=== PATIENT | female | born 1950 | race Caucasian/White ===

== ENCOUNTER → 2016-06-25 | Outpatient (CLI) | payer OTHER | LOC: FIMAGING 14:03 | DX: Z12.89 Encounter for screening for malignant neoplasm of other sites (principal); R91.1 Solitary pulmonary nodule; J43.2 Centrilobular emphysema ==

== ENCOUNTER 2017-03-17 16:05 | Emergency (ER) | payer OTHER ==
--- NOTE | 2017-03-17 16:52 | EDPHY ---
HPI/HX/ROS/PE/MDM Narrative: CHIEF COMPLAINT: Coughing associated with coughing up blood HISTORY OF PRESENT ILLNESS: The patient is a 67 y/o female with a history of COPD (oxygen dependent, 2.5L) and chronic bronchitis complaining of a worsening cough, onset 5 days ago. Her shortness of breath is also worse than baseline, but she has not turned her oxygen up. Since her symptoms began, she has developed right-sided chest tightness, achyness and a sore throat. Today was the first day she noticed blood in the sputum she was coughing up. She has been using her Albuterol inhaler more frequently. No fever, vomiting, headache, or body aches. Last took Prednisone 3 years ago when she was diagnosed with pneumonia. Her did have a cold last week. Denies history of diabetes, hypercholesteremia, hypertension, familial history of cardiac disease. No palpitations, urinary complaints, headache, lightheadedness. REVIEW OF SYSTEMS: Aside from elements discussed in the HPI, a comprehensive 10-point review of systems was reviewed and is negative. PAST MEDICAL HISTORY: COPD, chronic bronchitis component. SOCIAL HISTORY: at bedside, lives in [place], retired VITAL SIGNS: BP: 178/83, others reviewed by me GENERAL: Overweight, slightly ill appearing, on O2 with sat of 94%, seems uncomfortable with increased work of breathing. HEENT: Atraumatic. Eyes: No icterus, no injection. Mouth: moist mucous membranes. No erythema or lesions. Neck: supple with no adenopathy. LUNGS: Very diminished breath sounds. Wet sounding cough. CARDIAC: Regular rate and rhythm, no rubs, murmurs or gallops. ABDOMEN: Soft, nontender, nondistended, bowel sounds normal. BACK: No CVA tenderness. EXTREMITIES: No trauma. No edema. Range of motion is normal throughout. NEURO: Alert and oriented, grossly nonfocal. SKIN: Warm and dry, no rash. PSYCHIATRIC: Normal mentation, no agitation. Portions of this note were transcribed by a biomedical engineering aide. I personally performed a history, physical exam, medical decision making, and confirmed accuracy of information the transcribed note. ED Course: The patient is a 67 y/o female with a history of COPD (oxygen dependent, 2.5L), presenting with a worsening cough and dyspnea. On exam she has very dimished breath sounds bilaterally and a wet sounding cough. Labs, EKG, and chest x-ray ordered. DuoNeb, Albuterol, and 125mg IV Solu-Medrol administered. 1735: Patient's chest x-ray reveals COPD with perihilar bronchitis and right basilar diskoid subsegmental atelectasis and/or parenchymal fibrosis. 1735: 12-LEAD EKG: Please see the full report in [facility]. My interpretation: Normal sinus rhythm with a rate of 73 1832: Influenza PCR is negative. Incidentally, patient is positive for RSV, other lab results are unremarkable. 1858: Reassessed patient and discussed laboratory and imaging findings. She is feeling better after Albuterol and a DuoNeb, she will have an additional nebulizer treatment before discharge. I have prescribed her Levaquin, Tessalon Pearles, and Prednisone for her symptoms, her first doses of Levaquin and Prednisone will be given in the ED. Strict return precautions provided; patient and her are comfortable with this plan. MDM: Differential diagnosis for the patient's cough with slight hemoptysis was considered including but not limited to viral versus bacterial bronchitis, asthma, COPD, pulmonary emboli, upper respiratory infection, lower respiratory infection, influenza and bronchospasm. - Data Points Imaging: I viewed and interpreted images myself Laboratory Results: Laboratory Results 03/17/17 14:21 03/17/17 14:21 Medications Given: Discontinued Medications Albuterol (Proventil Neb) 3 ml IH EDNOW ONE Stop: 03/17/17 17:36 Last Admin: 03/17/17 17:52 Dose: 3 ml Albuterol (Proventil Neb) 3 ml IH EDNOW ONE Stop: 03/17/17 19:15 Last Admin: 03/17/17 19:36 Dose: 3 ml Albuterol/Ipratropium (Duoneb) 3 ml IH EDNOW ONE Stop: 03/17/17 17:36 Last Admin: 03/17/17 17:52 Dose: 3 ml Levofloxacin (Levaquin) 750 mg PO EDNOW ONE PRN Reason: Protocol Stop: 03/17/17 19:06 Last Admin: 03/17/17 19:35 Dose: 750 mg Methylprednisolone Sodium Succinate (Solu-Medrol) 125 mg IVP EDNOW ONE Stop: 03/17/17 17:36 Last Admin: 03/17/17 17:52 Dose: 125 mg General Time Seen by Provider: 03/17/17 16:48 Initial Vital Signs: Initial Vital Signs Temperature (C) 36.5 C 03/17/17 16:26 Heart Rate 84 03/17/17 16:26 Respiratory Rate 20 03/17/17 16:26 Blood Pressure 178/103 H 03/17/17 16:26 O2 Sat (%) 94 03/17/17 16:26 O2 Delivery Mode Room Air O2 (L/minute) 3 Allergies/Adverse Reactions: No Known Allergies Allergy (Unverified 03/17/17 16:24) Home Medications: Medication Instructions Recorded Albuterol Sulfate [Proventil Hfa] 200 puffs IH PRN 02/10/12 Albuterol Sulfate [ALBUTEROL 1.25 mg IH Q4-6PRN PRN #20 03/17/17 SULFATE 1.25 MG/3 ML] Benzonatate [Tessalon Pearles (RX)] 100 mg PO TID PRN #20 cap 03/17/17 Spiriva Handihaler 03/17/17 Symbicort 160-4.5 Mcg Inh (*) 03/17/17 levOFLOXACIN [levAQUIN (*)] 750 mg PO DAILY #6 tab 03/17/17 predniSONE [Prednisone] 10 - 40 mg PO DAILY 12 Days tablet 03/17/17 Departure - Departure Disposition: Home, Routine, Self-Care Clinical Impression: Chronic obstructive pulmonary disease with acute exacerbation, RSV infection URI (upper respiratory infection) Qualifiers: URI type: unspecified URI Qualified Code(s): J06.9 - Acute upper respiratory infection, unspecified Condition: Good Instructions: Respiratory Syncytial Virus (ED), COPD (Chronic Obstructive Pulmonary Disease) (ED) Additional Instructions: Use your Albuterol and nebulizer machine up to 4 times a day. Take the Levaquin as prescribed. Take Prednisone as prescribed. Take Tessalon Jamil as prescribed. Increase your oxygen as needed from 2.5 to 4L. If you need to go higher than 4L , please return to the emergency department. Follow-up with your primary doctor within 72 hours. Return to the Emergency Department for fever, chest pain, shortness of breath, increasing pain or other worsening of condition. Referrals: [facility],. [Clinic] - As per Instructions Valentino Brandon MD [Medical Doctor] - As per Instructions Prescriptions: Albuterol Sulfate [ALBUTEROL SULFATE 1.25 MG/3 ML] 1.25 mg IH Q4-6PRN PRN #20 PRN Reason: shortness of breath Benzonatate [Tessalon Pearles (RX)] 100 mg PO TID PRN #20 cap PRN Reason: Cough levOFLOXACIN [levAQUIN (*)] 750 mg PO DAILY #6 tab predniSONE [Prednisone] 10 - 40 mg PO DAILY 12 Days tablet Report Scribed for: Areli Wan Report Scribed by: Dulce Edwards Date of Report: 03/17/17 Time of Report: 16:52
[2017-03-17] MEDS ORDERED: ALBUTEROL 3 ML DEYVIAL IH ONE ×2 (17:35→19:14)
[2017-03-17] MEDS ORDERED: methylPREDNISolone SOD SUCC 125 MG/2 ML VIAL IVP ONE (17:35)
[2017-03-17] MEDS ORDERED: IPRATROPIUM/ALBUTEROL 3 ML DEYVIAL IH ONE (17:35)
--- NOTE | 2017-03-17 17:37 | CPEKG ---
Heart Rate: 73 RR Interval: 822 P-R Interval: 176 QRSD Interval: 82 QT Interval: 428 QTC Interval: 472 P [place]: 47 QRS [place]: -2 T Wave [place]: 45 EKG Severity - NORMAL ECG - EKG Impression: SINUS RHYTHM Electronically Signed By: Areli Wan 17-Mar-2017 22:41:43
[2017-03-17 17:49] LABS: PLATELET COUNT 214 10^3/uL (150-400)
[2017-03-17 18:25] VITALS: BP 140/89
[2017-03-17 20:04] VITALS: PULSE 83; RESP 18; TEMP 97.5; O2SAT 92
== END 2017-03-17 20:19 | disposition home or self-care (01) ==
DX: J44.1 Chronic obstructive pulmonary disease with (acute) exacerbation (principal); J06.9 Acute upper respiratory infection, unspecified; B97.4 Respiratory syncytial virus as the cause of diseases classified elsewhere
CPT/HCPCS: 71046; 93005; 96374; 99285; J2930; J7613